=== PATIENT | male | born 1985 | race African-American/Black ===

== ENCOUNTER 2018-07-05 07:11 | Day surgery (SDC) | payer BC ==
[2018-07-04 12:08] VITALS: BMI 33.7
[2018-07-05] MEDS ORDERED: Oxymetazoline HCl 0.05% ( 15 ML ) ONE ×2 (07:53→09:30)
[2018-07-05] MEDS ORDERED: Fentanyl 250 MCG/5 ML VIAL ONE (09:28)
[2018-07-05] MEDS ORDERED: methylPREDNISolone Sod Succ 40 MG VIAL ONE (09:30)
[2018-07-05] MEDS ORDERED: Lidocaine 1% w/Epinephrine 1:100K 20 ML VIAL ONE (09:30)
[2018-07-05] MEDS ORDERED: Bacitracin Zinc Ointment 30 gm TUBE ONE (09:31)
[2018-07-05] MEDS ORDERED: Fentanyl 100 MCG/2 ML VIAL ONE ×2 (10:57→11:21)
[2018-07-05] MEDS ORDERED: Rocuronium Bromide 10 MG/ML (10ML VIAL) ONE (15:30)
[2018-07-05] MEDS ORDERED: Ondansetron PF 4 MG/2 ML Vial ONE (15:30)
[2018-07-05] MEDS ORDERED: Lidocaine 1% PF 5 ML VIAL ONE (15:30)
[2018-07-05] MEDS ORDERED: Dexamethasone 20 MG/5 ML VIAL ONE (15:30)
[2018-07-05] MEDS ORDERED: Glycopyrrolate 0.2 MG/ML 5 ML SYRINGE ONE (15:30)
--- NOTE | 2018-07-06 15:53 | OP ---
DATE OF PROCEDURE: 07/05/2018 PREOPERATIVE DIAGNOSIS: 1. Nasal septal deviation. 2. Bilateral inferior turbinate hypertrophy. 3. Chronic adenotonsillitis. 4. Adenotonsillar hypertrophy. POSTOPERATIVE DIAGNOSES: 1. Nasal septal deviation. 2. Bilateral inferior turbinate hypertrophy. 3. Chronic adenotonsillitis. 4. Adenotonsillar hypertrophy. PROCEDURES PERFORMED: 1. Nasal septoplasty. 2. Bilateral inferior turbinate submucosal resection. 3. Tonsillectomy and adenoidectomy. ESTIMATED BLOOD LOSS: 10 mL. COMPLICATIONS: None. ANESTHESIA: GETA PROCEDURE IN DETAIL After consent was obtained, the patient was identified, brought to the operating room, and placed on the operating table in the supine position. General endotracheal anesthesia and intravenous access were obtained and we proceeded with positioning the patient for oropharyngeal surgery. Oropharyngeal exposure was obtained with a Hunter-Wilmer mouth gag after a head drape was placed and secured with a towel clip. The Hunter-Wilmer mouth gag was then suspended from the Vo tray and palatal elevation was achieved with a red rubber catheter. The right tonsil was addressed first. We used a curved Allis to grasp the tonsil and retract it medially as an anterior pillar incision was made. The retrotonsillar fascial plane was then established and blunt dissection was performed with the suction cautery. Blood vessels were anticipated, identified, and cauterized as they were encountered. Ultimately, dissection was carried to the posterior tonsillar pillar mucosa which was incised hemostatically, as well as the base of tongue connection. The tonsil was then passed off as a specimen and bleeding points within the tonsillar bed were cauterized under direct visualization. We subsequently turned our attention to the contralateral side, where using a similar technique, a near identical procedure was performed. Again, the tonsil was grasped and retracted medially with a curved Allis. The retrotonsillar fascial plane was established and while the anterior pillar was retracted medially. The hemostatic blunt dissection of the tonsil with a suction cautery was performed with blood vessels anticipated, identified, and cauterized as they were encountered. Again, dissection continued to the base of tongue and posterior tonsillar pillar mucosa which was incised in a hemostatic fashion. The tonsillar beds were then carefully inspected and bleeding points were identified and cauterized with a suction cautery. After this portion of the procedure, hemostasis was completely obtained. Under direct mirror visualization, we visualized the adenoid pad. Under direct mirror visualization, we removed the bulk of the adenoid tissue with the adenoid curette. We then packed the nasopharynx for an appropriate period of time with [id number] tonsillar sponges. After a period of observation, we removed the pack. Under indirect mirror visualization, we obtained hemostasis and vaporization of residual adenoid tissue with electrocautery. The patient's oral cavity was copiously irrigated with iced saline and subsequently suctioned. After completion of the procedure, the nasal cavity and oropharynx were irrigated and suctioned as were the gastric contents. The patient was then awakened and transferred to the recovery room where the patient remained in stable condition prior to discharge to Day Stay. Patient was taken to the operating room and placed supine on the table. General endotracheal anesthesia was obtained by the anesthesia staff. Tube was secured in the left lower lip. Patient was then placed in the beach chair position, and Afrin pledgets were placed in the nasal cavity. Injections of 1% lidocaine with 1:100,000 epinephrine were made into the nasal septum as well as the inferior turbinates. Patient was then prepped and draped in standard surgical fashion for nasal surgery. Following this, the Afrin pledgets were removed. A [place] incision was made on the left nasal septum. Submucoperichondrial dissection was performed. The deviated portions of the septum included portions of the cartilage and the bony septum. These isolated areas were removed using 3 cutting rongeurs. There was noted to be a large dorsal and caudal strut, left intact for support of the nose. The mucoperichondrial flaps were then reapproximated using a 4-0 gut stitch. Any straight pieces of cartilage were crushed prior to this and placed between the mucoperichondrial flaps. Following this, the inferior turbinates were then punctured with a submucosal coblation wand, and submucosal coblations were performed of multiple areas of the inferior portion of the anterior inferior turbinate. Please note that the submucosal microdebrider was used to submucosally resect the anterior and inferior portions of the inferior turbinates bilaterally. Job ID: [id number]
== END 2018-07-05 13:41 | disposition home or self-care (01) ==
LOC: SDC 07:11
PROVIDERS: ATTEND Otolaryngology Plastic Surgery within the Head & Neck
PROC: 0CTQ0ZZ Resection of Adenoids, Open Approach (ICD-10-PCS; principal; 2018-07-05)
PROC: 09TL0ZZ Resection of Nasal Turbinate, Open Approach (ICD-10-PCS; principal; 2018-07-05)
PROC: 0CTPXZZ Resection of Tonsils, External Approach (ICD-10-PCS; principal; 2018-07-05)
PROC: 09BM0ZZ Excision of Nasal Septum, Open Approach (ICD-10-PCS; principal; 2018-07-05)
DX: J35.03 Chronic tonsillitis and adenoiditis (principal); J34.3 Hypertrophy of nasal turbinates; J34.2 Deviated nasal septum; Z98.890 Other specified postprocedural states
CPT/HCPCS: 88304; J1100; J2001; J2405; J2920; J3010

== ENCOUNTER 2020-08-03 13:36 | Inpatient (IN) | payer OTHER ==
[~2020-08-03 13:36] MED LIST: Iopamidol-370 76% 500 ML 1 ML ONE
[2020-08-03] MEDS ORDERED: Acetaminophen 500 MG TAB ONE (14:04)
[2020-08-03 14:11] LABS: #Basophils 0.1 thou/uL (0.0-0.2); #Lymphocytes 1.5 thou/uL (1.20-3.40); #Monocytes 0.6 thou/uL (0.11-0.59); #Neutrophils 6.6 thou/uL (1.40-6.50); %Eosinophils 0.1 % (0.0-10.0); %Lymphocytes 17.4 % (21.0-51.0); %Monocytes 6.3 % (0.0-10.0); %Neutrophils 75.2 % (42.0-75.0); Mean Corpuscular Volume 82.5 fL (78.0-98.0); Mean Platelet Volume 8.8 fL (7.4-10.4); Platelet Count 193 thou/uL (130-400); RBC Distribution Width 12.8 % (11.5-14.5); Red Blood Cell (RBC) Count 6.07 mill/uL (4.70-6.10); White Blood Cell (WBC) Count 8.7 thou/uL (4.8-10.8)
[2020-08-03 14:42] LABS: Actual Bicarbonate (HCO3v) 24 mEq/L (22-28); Analyzer IN Cardio ER; Base Excess -0.6 mEq/L (-2.0 to +3.0); Calcium, Ionized (venous) 1.09 mmol/L (1.16-1.32); Chloride (VBG) 101 mmol/L (98-106); Hemoglobin (Hb) 16.4 g/dL (13.2-17.3); Potassium (VBG) 3.73 mmol/L (3.70-5.30); Sodium 135.6 mmol/L (133-146); pH (venous) 7.39 (7.32-7.43)
[2020-08-03] MEDS ORDERED: Azithromycin 500 MG VIAL ONE (14:42)
[2020-08-03] MEDS ORDERED: cefTRIAXone\\ROCEPHIN 2 GM VIAL ONE (14:42)
[2020-08-03 14:50] LABS: ALT (SGPT) 42 U/L (8-55); AST (SGOT) 34 U/L (5-34); Albumin 4.6 g/dL (3.5-5.0); Alkaline Phosphatase 50 U/L (40-110); Anion Gap 17 mmol/L (10-20); BUN (Urea Nitrogen) 13 mg/dL (8.9-20.6); Bilirubin, Total 1.2 mg/dL (0.2-1.2); Calc. Creatinine Clearance 0 mL/min (70-130); Calcium 8.8 mg/dL (7.8-10.44); Carbon Dioxide 27 mmol/L (22-29); Chloride 99 mmol/L (98-107); Globulin 3.7 g/dL (2.4-3.5); Glucose 94 mg/dL (70-105); Potassium 3.7 mmol/L (3.5-5.1); Protein, Total 8.3 g/dL (6.0-8.3); Sodium 139 mmol/L (136-145)
[2020-08-03] MEDS ORDERED: Dexamethasone 10 MG/ML VIAL ONE (15:15)
[2020-08-03] MEDS ORDERED: Acetaminophen 650 MG Suppository PR PRN (15:38)
[2020-08-03] MEDS ORDERED: Guaifenesin DM 100-10/5 ML UDCUP PO PRN (15:38)
[2020-08-03] MEDS ORDERED: Lidocaine 5% Patch TD SCH (15:45)
[2020-08-03] MEDS: Sodium Chloride 0.9% 1,000 ML IV SCH (17:01)
[2020-08-03] MEDS ORDERED: REMDESIVIR (EUA) 200 MG in Sodium Chloride 0.9% 250 ML 210 ML IV SCH (18:00)
[2020-08-03 18:26] VITALS: BMI 35.7
[2020-08-03] MEDS: Enoxaparin Sodium 40 MG/0.4 ML SYRINGE SC SCH (20:13)
[2020-08-03] MEDS: Benzonatate 100 MG CAP PO PRN (20:15)
[2020-08-03] MEDS: Acetaminophen 325 MG TAB PO PRN (20:20)
[2020-08-04] MEDS: Benzonatate 100 MG CAP PO PRN ×3 (02:47→15:39)
[2020-08-04] MEDS: Acetaminophen 325 MG TAB PO PRN ×2 (02:48→17:39)
[2020-08-04] MEDS: Sodium Chloride 0.9% 1,000 ML IV SCH ×2 (05:09→21:16)
[2020-08-04] MEDS: Transdermal Patch Removal TOP SCH (05:11)
[2020-08-04 06:15] LABS: #Lymphocytes 1.2 thou/uL (1.20-3.40); #Monocytes 0.5 thou/uL (0.11-0.59); #Neutrophils 5.2 thou/uL (1.40-6.50); %Basophils 0.1 % (0.0-1.0); %Eosinophils 0.1 % (0.0-10.0); %Lymphocytes 17.7 % (21.0-51.0); %Monocytes 6.9 % (0.0-10.0); %Neutrophils 75.3 % (42.0-75.0); Hemoglobin 15.2 g/dL (14.0-18.0); Mean Corpuscular HGB CONC 35.7 g/dL (32.0-36.0); Mean Corpuscular Hemoglobin 29.4 pg (27.0-31.0); Mean Corpuscular Volume 82.5 fL (78.0-98.0); Mean Platelet Volume 8.8 fL (7.4-10.4); Platelet Count 183 thou/uL (130-400); RBC Distribution Width 12.7 % (11.5-14.5); Red Blood Cell (RBC) Count 5.18 mill/uL (4.70-6.10); White Blood Cell (WBC) Count 6.9 thou/uL (4.8-10.8)
[2020-08-04 06:33] LABS: Anion Gap 17 mmol/L (10-20); BUN (Urea Nitrogen) 11 mg/dL (8.9-20.6); Calc. Creatinine Clearance 201 mL/min (70-130); Carbon Dioxide 20 mmol/L (22-29); Chloride 105 mmol/L (98-107); Glucose 117 mg/dL (70-105); Potassium 3.9 mmol/L (3.5-5.1); Sodium 138 mmol/L (136-145)
[2020-08-04] MEDS: Dexamethasone 4 MG TAB PO SCH (08:14)
[2020-08-04] MEDS ORDERED: Loperamide HCl 2 MG CAP PO PRN (10:57)
[2020-08-04] MEDS: Enoxaparin Sodium 40 MG/0.4 ML SYRINGE SC SCH (21:07)
[2020-08-04] MEDS ORDERED: REMDESIVIR (EUA) 100 MG in Sodium Chloride 0.9% 250 ML 230 ML IV SCH (22:00)
[2020-08-05] MEDS: Transdermal Patch Removal TOP SCH (04:23)
[2020-08-05] MEDS ORDERED: Ondansetron PF 4 MG/2 ML Vial IVP SCH (04:30)
[2020-08-05] MEDS: Acetaminophen 325 MG TAB PO PRN (05:54)
[2020-08-05] MEDS: Benzonatate 100 MG CAP PO PRN (05:54)
[2020-08-05] MEDS: Sodium Chloride 0.9% 1,000 ML IV SCH (07:33)
[2020-08-05] MEDS: Dexamethasone 4 MG TAB PO SCH (08:03)
[2020-08-05 14:38] VITALS: BP 116/78; TEMP 98.4
== END 2020-08-05 15:42 | disposition home or self-care (01) | DRG 871 ==
LOC: ERS 13:36 → T4-B 15:14 → OBSVTOIN 17:07
PROVIDERS: ADMIT Internal Medicine; ATTEND Internal Medicine
PROC: 8E0ZXY6 Isolation (ICD-10-PCS; principal; 2020-08-03)
PROC: XW033E5 Introduction of Remdesivir Anti-infective into Peripheral Vein, Percutaneous Approach, New Technology Group 5 (ICD-10-PCS; 2020-08-03)
DX: A41.89 Other specified sepsis (principal); U07.1 COVID-19; J12.82 Pneumonia due to coronavirus disease 2019; J96.01 Acute respiratory failure with hypoxia; M54.30 Sciatica, unspecified side; Z98.52 Vasectomy status
CPT/HCPCS: 36415; 71045; 71275; 80048; 80053; 82728; 82805; 83605; 85025; 85379; 86140; 87040; 93005; 96365; 96375; G0378; J0456; J0696; J1100; J1650; J2405; J7050; J8540; Q9967